=== PATIENT | female | born 1965 | race Caucasian/White ===

== ENCOUNTER 2016-11-26 11:31 | Emergency (ER) | payer OTHER ==
[2016-11-26 13:18] VITALS: BP 116/87
== END 2016-11-26 13:18 | disposition home or self-care (01) ==
LOC: ED 11:31
DX: T78.40XA Allergy, unspecified, initial encounter (principal); X58.XXXA Exposure to other specified factors, initial encounter
CPT/HCPCS: J0171; J1200; J2930; J3490; J7030

== ENCOUNTER 2017-08-06 18:57 | Emergency (ER) | payer OTHER ==
[~2017-08-06] VITALS: Ht 160 cm; Wt 78.5 kg
[2017-08-06 19:11] VITALS: Ht 160 cm; Wt 78.5 kg
[2017-08-06 20:25] LABS: BASOPHIL % 0.3 % (0-2); PLATELET COUNT 225 x10^3mcL (130-400)
[2017-08-06 20:49] LABS: CALCIUM 8.7 mg/dL (8.5-10.1); CHLORIDE SERUM 105 mmol/L (98-107); CREATININE SERUM 0.9 mg/dL (0.6-1.0); GFR1 > 60 mL/min; GLUCOSE SERUM 114 mg/dL (74-106); POTASSIUM SERUM 4.2 mmol/L (3.5-5.1); SODIUM SERUM 142 mmol/L (136-145)
[2017-08-06 20:55] LABS: ALBUMIN 3.7 g/dL (3.4-5.0); ALKALINE PHOSPHATASE 72 U/L (46-116); ALT/SGPT 54 U/L (14-59); AMYLASE 63 U/L (25-115); AST/SGOT 60 U/L (15-37); BILIRUBIN TOTAL 0.5 mg/dL (0.20-1.00); LIPASE 233 IU/L (73-393); TOTAL PROTEIN, SERUM 7.5 g/dL (6.4-8.2)
[2017-08-06 22:19] VITALS: BP 115/64
== END 2017-08-06 22:19 | disposition home or self-care (01) ==
LOC: ED 18:57
PROVIDERS: Emergency Medicine
DX: R10.13 Epigastric pain (principal); Z88.8 Allergy status to other drugs, medicaments and biological substances
CPT/HCPCS: 36415; 83880; J2405; J3010; Q0162

== ENCOUNTER 2018-09-30 15:58 | Emergency (ER) | payer OTHER ==
[~2018-09-30] VITALS: Ht 162.6 cm; Wt 86.6 kg
[2018-09-30 16:00] VITALS: BP 116/83; Ht 162.6 cm; Wt 86.6 kg
== END 2018-09-30 17:10 | disposition home or self-care (01) ==
LOC: ED 15:58
DX: M54.12 Radiculopathy, cervical region (principal); F32.9 Major depressive disorder, single episode, unspecified; F41.9 Anxiety disorder, unspecified; Z90.89 Acquired absence of other organs; Z88.8 Allergy status to other drugs, medicaments and biological substances